=== PATIENT | female | born 1960 | race Caucasian/White ===

== ENCOUNTER → 2017-05-15 | Outpatient (CLI) | payer OTHER ==
--- NOTE | 2017-05-15 11:39 | XR ---
EXAMINATION TYPE: XR lumbosacral spine min 4V , 5 VIEWS DATE OF EXAM ORDERED: 05/15/2017 HISTORY: M54.5 back pain. COMPARISON: None. FINDINGS: Vertebral body height and alignment are maintained. There is no spondylolysis or spondylol isthesis. There is hypertrophic spondylosis present at L1-2. There is facet arthropathy at L4-5 and L 5-S1. The pedicles are intact. IMPRESSION: 1. NO ACUTE OSSEOUS LESION. 2. DEGENERATIVE CHANGE.
== END ==
LOC: RADXRMAIN 10:20
PROVIDERS: ATTEND Family Medicine
DX: M47.817 Spondylosis without myelopathy or radiculopathy, lumbosacral region (principal)
CPT/HCPCS: 72110

== ENCOUNTER → 2018-04-11 | Outpatient (CLI) | payer OTHER ==
--- NOTE | 2018-04-11 11:33 | US ---
EXAMINATION TYPE: US kidneys/renal and bladder DATE OF EXAM: 04/11/2018 COMPARISON: NONE CLINICAL HISTORY: N39.498 Other specified urinary incontinence. Incontinence for 2 years, getting wor se EXAM MEASUREMENTS: Right Kidney: 12.3 x 4.5 x 3.6 cm Left Kidney: 13.2 x 5.5 x 5.0 cm Post Void Residual Volume: 13.8 mL Right Kidney: no evidence of hydronephrosis or mass as visualized Left Kidney: enlarged with no evidence of hydronephrosis Bladder: appears wnl Bilateral Jets seen: yes Normal Post Void Residual: yes IMPRESSION: 1. Normal retroperitoneal ultrasound.
== END | disposition home or self-care (01) ==
LOC: RADUSWWP 08:24
PROVIDERS: ATTEND Family Medicine
DX: N39.498 Other specified urinary incontinence (principal)
CPT/HCPCS: 76770

== ENCOUNTER → 2019-06-06 | Outpatient (CLI) | payer OTHER ==
--- NOTE | 2019-06-06 23:31 | CONS ---
CONSULTATION DATE OF SERVICE: 06/06/2019 This patient is a 59-year-old lady who has [facility] for significant excessive daytime sleepiness, loud snoring, awakenings from sleep with snoring and choking. HISTORY OF PRESENT ILLNESS/SLEEP-WAKE EVALUATION: Patient's usual sleep schedule is from 12 midnight until 10 a.m. Sometimes she has problems with falling asleep, although no TV in bedroom. She sleeps in different positions, including back, side, stomach and also in the chair. She wakes up from sleep about 3 times, with two episodes of nocturia. She has episodes of stopped breathing during sleep, choking, snoring. She wakes up with a dry mouth, episodes of palpitations, heartburn, sweating, restless legs. No history of hypnagogic hallucinations or sleep paralysis. During naps during the day (she may take up to 3 naps a day) she may see vivid dreams. She drinks up to 5 caffeinated beverages during the day. During the day she feels significantly sleepy. [place] Sleepiness Scale is 14. She has difficulties paying attention, falling asleep during the day, worrying about her sleep, has problems with memory, concentration, irritability, depression, sexual dysfunction. Positive history of kicking at night. PAST MEDICAL HISTORY: 1. Depression. 2. Hyperlipidemia. 3. Allergies. 4. Acid reflux. 5. Varicose veins. 6. Retinal detachment. PAST SURGICAL HISTORY: 1. Right retinal reattachment. 2. Surgery on varicose veins on both legs. 3. Total hysterectomy. MEDICATIONS: 1. Lexapro. 2. Lipitor. 3. Citrucel. 4. . 5. Claritin. 6. Multivitamins. 7. Prilosec. 8. Probiotic. 9. Melatonin. SOCIAL HISTORY: Positive for smoking for about 30 pack/years; quit around 7 years ago. Alcohol consumption occasional. FAMILY HISTORY: Hypertension, heart problems, hyperlipidemia, fibromyalgia, arthritis, asthma, sinus problems, bronchitis, emphysema, snoring, cancer, acid reflux, ulcer, abscess, mental illness, restless legs. REVIEW OF SYSTEMS: Multiple awakenings from sleep. Significant sleepiness during the day. PHYSICAL EXAMINATION: GENERAL: A pleasant lady without distress. VITAL SIGNS: BP 134/83, HR 68, RR 16, height 5 feet 3-1/2 inches, weight 221 pounds, body mass index 38.5, temperature 97.4, oxygen saturation at room air 96%. HEENT: PERRLA, EOMI. Evaluation of oropharynx showed tongue protrudes midline. Extremely low position of soft palate. Mallampati IV. Some restriction of nasal breathing. NECK: Supple. No JVD. Thyroid is not palpable. Wide neck; 15-1/2 inches in circumference. LUNGS: Clear to percussion and to auscultation. Good air exchange. No wheezing or rhonchi. HEART: S1, S2 regular. No murmurs, gallops or rubs. ABDOMEN: Slightly obese. EXTREMITIES: No clubbing or cyanosis. 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 Cranial nerves 2 to 7 intact. There is no fasciculation or atrophy. noted. No focal deficits observed. IMPRESSION: 1. Snoring, awakenings from choking multiple times, extremely low position of soft palate, Mallampati IV, results of pulse oximetry during sleep showed oxygen desaturation to 67%, wide neck, sleepiness; obstructive sleep apnea-hypopnea syndrome. 2. Obesity; body mass index 38.5. 3. Symptoms of restless legs syndrome. 4. Kicking at night, possibly periodic limb movements. 5. Significant excessive daytime sleepiness with feeling extremely sleepy in the morning after awakenings. [place] Sleepiness Scale significantly increased at 14. Positive history of vivid dreams during naps. Differential diagnosis should include narcolepsy. 6. History of depression. 7. Hyperlipidemia. 8. Allergies. 9. Acid reflux. 10.Status post right retinal detachment, status post surgical treatment with reattachment. 11.Status post surgical treatment of varicose veins of legs. 12.Status post total hysterectomy. PLAN: 1. Polysomnography for evaluation of patient's breathing during sleep. 2. CPAP/BiPAP titration if sleep study confirms obstructive sleep apnea-hypopnea syndrome. 3. Preferable position during sleep on the side. 4. No driving if patient feels any sleepiness. 5. I will see patient for follow up visit to explain results of testing and following plan. 6. Will consider multiple sleep latency test for objective evaluation of patient's symptoms of excessive daytime sleepiness if sleep study is negative for obstructive sleep apnea-hypopnea syndrome or if the patient continues to have symptoms of sleepiness after sleep apnea is treated. Thank you very much for referring this patient for consultation. Sincerely, Zane Rojas MD, PhD, FAASM Diplomat of [employer] [facility] [address] [place] STEPHANIE / WALLY: [phone] /
== END | disposition home or self-care (01) ==
LOC: SLEEP 15:02
PROVIDERS: ATTEND Internal Medicine
DX: G47.33 Obstructive sleep apnea (adult) (pediatric) (principal); E78.5 Hyperlipidemia, unspecified; T78.40XA Allergy, unspecified, initial encounter; K21.9 Gastro-esophageal reflux disease without esophagitis; E66.9 Obesity, unspecified; Z68.38 Body mass index [BMI] 38.0-38.9, adult; Z98.890 Other specified postprocedural states; Z90.710 Acquired absence of both cervix and uterus; Z79.899 Other long term (current) drug therapy; Z87.891 Personal history of nicotine dependence; Z86.59 Personal history of other mental and behavioral disorders
CPT/HCPCS: 99211

== ENCOUNTER → 2020-03-04 | Outpatient (CLI) | payer OTHER ==
--- NOTE | 2020-03-04 17:14 | MR ---
EXAMINATION TYPE: MR knee LT wo con DATE OF EXAM: 03/04/2020 COMPARISON: None HISTORY: Lt knee pain x 2 months, no trauma TECHNIQUE: Multiplanar, multisequence images of the knee is performed without IV contrast. FINDINGS: MEDIAL MENISCUS: There is linear signal within the posterior horn medial meniscus compatible some int ernal derangement. Anterior horn medial meniscus appears intact. LATERAL MENISCUS: Anterior and posterior horns are intact without tear. CRUCIATE LIGAMENTS: The anterior and posterior cruciate ligaments are intact and unremarkable. COLLATERAL LIGAMENTS: Increased signal surrounding the medial collateral ligament. Correlate for stra in. The ligament appears intact. EXTENSOR MECHANISM: Visualized quadriceps and patellar tendons are intact. EFFUSION: There is a small joint effusion present. POPLITEAL CYST: No popliteal/ambrocio cyst. TRICOMPARTMENT SPACES: Medial lateral compartment joint spaces are narrowed. CARTILAGE: There is narrowing of the articular cartilage. There is loss of the posterior patellar car tilage. BONE MARROW SIGNAL: There is a small contusion along the lateral tibial plateau midportion. OTHER: No additional significant abnormality is appreciated. IMPRESSION: 1. Strain of the medial collateral ligament. 2. Internal derangement of the posterior horn medial meniscus. 3. Contusion of the mid medial portion of the medial tibial plateau. 4. Small joint effusion. 5. Moderate osteoarthritic degenerative change with thinning of the articular cartilage and narrowing of the joint spaces
== END | disposition home or self-care (01) ==
LOC: RADMRIMAIN 13:50
PROVIDERS: ATTEND Orthopaedic Surgery
DX: S80.02XA Contusion of left knee, initial encounter (principal); M17.12 Unilateral primary osteoarthritis, left knee; M25.862 Other specified joint disorders, left knee

== ENCOUNTER → 2020-03-20 | Outpatient (CLI) | payer OTHER ==
[2020-03-20 11:31] LABS: Basophils % (A) 1 %; Eosinophils # (A) 0.1 k/uL (0-0.7); Eosinophils % (A) 2 %; HCT 37.6 % (34.0-46.0); HGB 12.4 gm/dL (11.4-16.0); Lymphocytes # (A) 1.4 k/uL (1.0-4.8); Lymphocytes % (A) 31 %; MCHC 32.9 g/dL (31.0-37.0); MCV 97.3 fL (80.0-100.0); Mean Platelet Volume 8.3; Monocytes # (A) 0.3 k/uL (0-1.0); Monocytes % (A) 6 %; Neutrophils # (A) 2.5 k/uL (1.3-7.7); Neutrophils % (A) 57 %; Platelet Count 202 k/uL (150-450); RBC 3.87 m/uL (3.80-5.40); RDW 12.2 % (11.5-15.5); WBC 4.4 k/uL (3.8-10.6)
== END | disposition home or self-care (01) ==
LOC: LABWHC1 10:26
PROVIDERS: ATTEND Orthopaedic Surgery
DX: Z01.818 Encounter for other preprocedural examination (principal); Z01.810 Encounter for preprocedural cardiovascular examination; M23.92 Unspecified internal derangement of left knee
CPT/HCPCS: 36415; 80051; 85025; 93005